=== PATIENT | male | born 1955 | race Caucasian/White ===

== ENCOUNTER → 2021-12-07 | Outpatient (CLI) | payer MEDICARE ==
--- NOTE | 2021-12-07 12:44 | P.PN ---
Subjective DATE: 12/07/2021 FOLLOW UP VISIT. Patient with obstructive sleep apnea hypopnea syndrome return to sleep center for follow-up visit. Recently patient had sleep study which documented obstructive sleep apnea hypopnea syndrome. Patient was initiated on PAP therapy and today is first visit after treatment was started. Patient was able to use PAP equipment every night for the whole night. The patient does have some problems with the mask andPAP pressure . She wakes up in the middle of the night and feels the pressure is too high [place] sleepiness scale is for. I checked information from PAP unit. PAP unit pressure 5-14 average 11.2 cm H2O. Usage is 90 % for more then 4 hours, average 6 hours per night. Leak is 12.8 l/m, which is in acceptable range. Apnea Hypopnea Index is 8.6, which is above normal but but definitely better than during diagnostic sleep test when apnea-hypopnea index was 22.4. MEDICATIONS:1. Metoprolol 25 mg twice a day 2. Tamsulosin 0.4 mg once a day 3. Xarelto 20 mg once a day During physical exam: GENERAL: A pleasant patient without any distress. VITAL SIGNS: BP 145/75, HR 50, RR 16 , weight 161, temperature 98.3, oxygen saturation at room air 98 . HEENT: PERRLA, EOMI.low position of soft palate, Mallapati 23 . NECK: Supple. No JVD. LUNGS: Clear to percussion and to auscultation. Good air exchange. No wheezing or rhonchi. HEART: S1, S2 regular. ABDOMEN: Soft and nontender.[] EXTREMITIES: No clubbing or cyanosis. GUITAR MAKER HAND: Awake, alert, and oriented x3. No focal deficit. Impressions: 1. Obstructive sleep apnea-hypopnea syndrome AHI 22.4. Patient demonstrated great compliance with treatment, benefiting from treatment. Patient has discomfort with full facemask and with pressure. 2. History of possible REM sleep behavioral disorder. 3. History of paroxysmal atrial fibrillation. 4. Benign prostatic hypertrophy. 5. History of pre-diabetes mellitus. 6. Status post surgical treatment of melanoma of the chest area. 7. Status post tonsillectomy. 8. Status post appendectomy. Plan: 1. Continue using PAP equipment every night for the whole night. I decrease maximal CPAP pressure down to 12 cm of water. We will try nasal pillows mask. 2. To change air filter at least 1-2 times per month. 3. PAP unit should stay lower then position of the head. 4. Advised patient to remove all remaining water from humidifier canister daily and make it dry after each usage. Refill canister with fresh distilled water before each usage. 5. Sleep hygiene with regular time in bed for at least 8 hours. 6. Precautions related to driving. No driving if feel any sleepiness. 7. I will maintain prescription for PAP supplies including mask, tube, filters. 8. Follow up visit in 4 months or earlier if patient has any problems. 9. Watching weight. Thank you very much for allowing me to participate in the management of your patient. Arnaud Boyer MD, PhD, FAASM. Diplomat of [place] [employer], Sleep Medicine Board by [employer] Medicine Fruit Worker of [facility] [place]
== END ==
LOC: SLEEP 11:42
PROVIDERS: ATTEND Internal Medicine
DX: G47.33 Obstructive sleep apnea (adult) (pediatric) (principal); I48.0 Paroxysmal atrial fibrillation; N40.0 Benign prostatic hyperplasia without lower urinary tract symptoms; Z98.890 Other specified postprocedural states; Z90.09 Acquired absence of other part of head and neck; Z86.39 Personal history of other endocrine, nutritional and metabolic disease; Z90.49 Acquired absence of other specified parts of digestive tract; Z99.89 Dependence on other enabling machines and devices

== ENCOUNTER → 2022-05-02 | Outpatient (CLI) | payer MEDICARE ==
--- NOTE | 2022-05-02 12:11 | P.PN ---
Subjective DATE: 05/02/2022 FOLLOW UP VISIT. Patient with obstructive sleep apnea hypopnea syndrome return to sleep center for follow-up visit. Information from previous visit have been reviewed. Patient is using PAP equipment every night for the whole night, getting PAP supplies in time. The patient does not have significant problems with the mask, PAP unit, but has some problem related to humidification. [place] sleepiness scale is 3, which is normal. Patient still has some episodes of out of dream movements but significantly rear than before starting to use CPAP equipment. I checked information from PAP unit. PAP unit pressure 5-12, average 11.1 cm H2O. Usage is 100% and 90 % for more then 4 hours, average 5.8 hours per night. Leak is 17.6 l/m, which is in acceptable range. Apnea Hypopnea Index is 6.0, which slightly above ideal range, but showed improvement comparing to the previous visit when it was 8.6. Apnea-hypopnea ind ex during the sleep study was 22.4. MEDICATIONS:1. Metoprolol 25 mg once a day 2. Xarelto 20 mg once a day 3. Pravastatin 20 mg once a day 4. Tamsulosin 20 mg once a day During physical exam: GENERAL: A pleasant patient without any distress. VITAL SIGNS: BP 146/78, HR 55, RR 16 , weight 166.0, temperature 97.0, oxygen saturation at room air 98 % . HEENT: PERRLA, EOMI.low position of soft palate, Mallapati 2-3 . NECK: Supple. No JVD. LUNGS: Clear to percussion and to auscultation. Good air exchange. No wheezing or rhonchi. HEART: S1, S2 regular. ABDOMEN: Soft and nontender.[] EXTREMITIES: No clubbing or cyanosis. DIGITAL PUBLISHING SPECIALIST: Awake, alert, and oriented x3. No focal deficit. Impressions: 1. Obstructive sleep apnea-hypopnea syndrome. Patient demonstrated great compliance with treatment, benefiting from treatment. Apnea-hypopnea index reduced to 6. 2. History of REM sleep behavior disorder episodes, improved on treatment with CPAP, still present but very early. 3. History of paroxysmal lateral fibrillation, no recent episodes. 4. BPH. 5. History of pre-diabetes mellitus. 6. Status post tonsillectomy. 7. Status post surgical treatment of melanoma over the chest area. 8. Status post appendectomy. Plan: 1. Continue using PAP equipment every night for the whole night. I teach patient how to regulate humidity, level of humidity was increased to 6. [place] gel to the nose if necessary. 2. To change air filter at least 1-2 times per month. 3. PAP unit should stay lower then position of the head. 4. Advised patient to remove all remaining water from humidifier canister daily and make it dry after each usage. Refill canister with fresh distilled water before each usage. 5. Sleep hygiene with regular time in bed for at least 8 hours. 6. Precautions related to driving. No driving if feel any sleepiness. 7. I will maintain prescription for PAP supplies including mask, tube, filters. 8. Follow up visit in 4 months or earlier if patient has any problems. 9. Watching weight. Thank you very much for allowing me to participate in the management of your patient. Arnaud Boyer MD, PhD, FAASM. Diplomat of [place] Board of Sleep Medicine, Sleep Medicine Board by [employer] Board of Internal Medicine Search Engine Marketing Manager of [facility] [place]
== END ==
LOC: SLEEP 11:20
PROVIDERS: ATTEND Internal Medicine
DX: G47.33 Obstructive sleep apnea (adult) (pediatric) (principal); I48.0 Paroxysmal atrial fibrillation; N40.0 Benign prostatic hyperplasia without lower urinary tract symptoms; Z90.09 Acquired absence of other part of head and neck; Z85.820 Personal history of malignant melanoma of skin; Z90.49 Acquired absence of other specified parts of digestive tract; Z79.01 Long term (current) use of anticoagulants; Z99.89 Dependence on other enabling machines and devices
CPT/HCPCS: 99212

== ENCOUNTER → 2022-09-13 | Outpatient (CLI) | payer MEDICARE ==
--- NOTE | 2022-09-13 12:21 | P.PN ---
Subjective DATE: 09/13/2022 FOLLOW UP VISIT. Patient with obstructive sleep apnea hypopnea syndrome return to sleep center for follow-up visit. Information from previous visit have been reviewed. Patient is using PAP equipment every night for the whole night, getting PAP supplies in time. The patient does not have significant problems with the mask, PAP unit and humidification. [place] sleepiness scale is 3, which is normal. I checked information from PAP unit and explained it to the patient in details. PAP unit pressure 5-12, average 11 cm H2O. Usage is 100% and 83 % for more then 4 hours, average 6 hours per night. Leak is 15.5 l/m, which is in acceptable range. Apnea Hypopnea Index is 6.5, which includes 4.7 central apneas and only 0.3 obstructive. MEDICATIONS:1. Metoprolol 25 mg once a day 2. Metformin 3. Finasteride 4. T[place]ul[place]in During physical exam: GENERAL: A pleasant patient without any distress. VITAL SIGNS: BP 145/82, HR 66, RR 12 , weight 162.2, temperature 98.1, oxygen saturation at room air 98 % . HEENT: PERRLA, EOMI.low position of soft palate, Mallapati 23 . NECK: Supple. No JVD. LUNGS: Clear to percussion and to auscultation. Good air exchange. No wheezing or rhonchi. HEART: S1, S2 regular. ABDOMEN: Soft and nontender.[] EXTREMITIES: No clubbing or cyanosis. SENIOR FIELD ENGINEER: Awake, alert, and oriented x3. No focal deficit. Impressions: 1. Obstructive sleep apnea-hypopnea syndrome. Patient demonstrated great compliance with treatment, benefiting from treatment. Few central apneas according reading from CPAP unit. 2. History of paroxysmal atrial fibrillation. 3. BPH. 4. History of REM sleep behavior disorder, no significant problems on CPAP. 5. Pre-diabetes mellitus. 6. Status post surgical treatment of melanoma over the chest area. 7. Status post tonsillectomy. 8. Status post appendectomy. Plan: 1. Continue using PAP equipment every night for the whole night. 2. To change air filter at least 1-2 times per month. 3. PAP unit should stay lower then position of the head. 4. Advised patient to remove all remaining water from humidifier canister daily and make it dry after each usage. Refill canister with fresh distilled water before each usage. 5. Sleep hygiene with regular time in bed for at least 8 hours. 6. Precautions related to driving. No driving if feel any sleepiness. 7. I will maintain prescription for PAP supplies including mask, tube, filters. 8. Watching weight. 9.Follow up visit in 6 months or earlier if patient has any problems. Thank you very much for allowing me to participate in the management of your patient. Arnaud Boyer MD, PhD, FAASM. Diplomat of [employer] Board of Sleep Medicine, Sleep Medicine Board by [employer] of Internal Medicine Geophysical Support Specialist of [facility] [place]
== END ==
LOC: SLEEP 11:41
PROVIDERS: ATTEND Internal Medicine
DX: G47.33 Obstructive sleep apnea (adult) (pediatric) (principal); Z99.89 Dependence on other enabling machines and devices; Z98.890 Other specified postprocedural states; E11.9 Type 2 diabetes mellitus without complications; I48.0 Paroxysmal atrial fibrillation; N40.0 Benign prostatic hyperplasia without lower urinary tract symptoms; Z79.899 Other long term (current) drug therapy; Z85.820 Personal history of malignant melanoma of skin; Z90.49 Acquired absence of other specified parts of digestive tract; Z79.84 Long term (current) use of oral hypoglycemic drugs
CPT/HCPCS: 99212

== ENCOUNTER → 2023-03-21 | Outpatient (CLI) | payer MEDICARE ==
--- NOTE | 2023-03-21 12:30 | P.PN ---
Subjective DATE: 03/21/2023 FOLLOW UP VISIT. Patient with obstructive sleep apnea hypopnea syndrome return to sleep center for follow-up visit. Information from previous visit have been reviewed. Patient is using PAP equipment every night for the whole night, getting PAP supplies in time. Sometimes patient has difficulties to breathe through the nose during sleep. [place] sleepiness scale is 2, which is perfect. I checked information from PAP unit. PAP unit pressure 5-12, average 9.5 cm H2O. Usage is 97% and 70 % for more then 4 hours, average 5 hours per night. Leak is 14.0 l/m, which is in acceptable range. Apnea Hypopnea Index is 3.2, which is normal. MEDICATIONS:1. Metoprolol 25 mg once a day 2. Pravastatin 20 mg once a day 3. Metformin 500 mg once a day 4. Flomax 0.4 mg twice a day 5. Prednisone 1 milligrams twice a day During physical exam: GENERAL: A pleasant patient without any distress. VITAL SIGNS: BP 133/76, HR 56, RR 18 , weight 161.0, temperature 98.4, oxygen saturation at room air 96 % . HEENT: PERRLA, EOMI.low position of soft palate, Mallapati 2-3 . NECK: Supple. No JVD. LUNGS: Clear to percussion and to auscultation. Good air exchange. No wheezing or rhonchi. HEART: S1, S2 regular. ABDOMEN: Soft and nontender.[] EXTREMITIES: No clubbing or cyanosis. MEDICAL SCIENCE LIAISON: Awake, alert, and oriented x3. No focal deficit. Impressions: 1. Obstructive sleep apnea-hypopnea syndrome. Patient demonstrated good compliance with treatment, benefiting from treatment. 2. History of paroxysmal atrial fibrillation. 3. History of REM sleep behavior disorder, improved with CPAP. 4. BPH. 5. Pre-Diabetes mellitus. 6. Status post surgical treatment for melanoma over the chest area. 7. Status post tonsillectomy. 8. Status post appendectomy. I decreased pressure in CPAP unit to the range of 5-10 cm of water. Temperature in the tube was increased to 82 and level of humidity was increased to 4. Plan: 1. Continue using PAP equipment every night for the whole night. 2. To change air filter at least 1-2 times per month. 3. PAP unit should stay lower then position of the head. 4. Advised patient to remove all remaining water from humidifier canister daily and make it dry after each usage. Refill canister with fresh distilled water before each usage. 5. Sleep hygiene with regular time in bed for at least 8 hours. 6. Precautions related to driving. No driving if feel any sleepiness. 7. I will maintain prescription for PAP supplies including mask, tube, filters. 8. Follow up visit in 6 months or earlier if patient has any problems. 9. Watching weight. Thank you very much for allowing me to participate in the management of your patient. Arnaud Boyer MD, PhD, FAASM. Diplomat of [place] Board of Sleep Medicine, Sleep Medicine Board by [place] [employer] of Internal Medicine Cylinder Machine Operator Pulp Drier of [facility] [place]
== END ==
LOC: 3 N SLEEP 11:36
PROVIDERS: ATTEND Internal Medicine
DX: G47.33 Obstructive sleep apnea (adult) (pediatric) (principal); E11.9 Type 2 diabetes mellitus without complications; I48.0 Paroxysmal atrial fibrillation; N40.0 Benign prostatic hyperplasia without lower urinary tract symptoms; Z79.84 Long term (current) use of oral hypoglycemic drugs; Z79.899 Other long term (current) drug therapy; Z85.820 Personal history of malignant melanoma of skin; Z90.49 Acquired absence of other specified parts of digestive tract; Z98.890 Other specified postprocedural states; Z90.89 Acquired absence of other organs; Z99.89 Dependence on other enabling machines and devices
CPT/HCPCS: 99212

== ENCOUNTER → 2023-10-09 | Outpatient (CLI) | payer MEDICARE ==
[2023-10-09 11:51] VITALS: BP 151/92; PULSE 55; RESP 16; TEMP 98.1
--- NOTE | 2023-10-09 12:14 | P.PN ---
Subjective DATE: 10/09/2023 FOLLOW UP VISIT. Patient with obstructive sleep apnea hypopnea syndrome return to sleep center for follow-up visit. Information from previous visit have been reviewed. Patient is using PAP equipment every night for the whole night, getting PAP supplies in time. The patient does not have significant problems with the mask, PAP unit and humidification. [place] sleepiness scale is 3, which is normal. I checked information from PAP unit. PAP unit pressure 5-10, average 8.9 cm H2O. Usage is 97% and 73% for more then 4 hours, average 5.75 hours per night. Leak is 17.6 l/m, which is in acceptable range. Apnea Hypopnea Index is slightly increased to 5.6. MEDICATIONS:1. Metoprolol 25 mg once a day 2. Pravastatin 20 mg once a day 3. Aspirin 81 mg once a day 4. Tamsulosin 0.4 mg twice a day During physical exam: GENERAL: A pleasant patient without any distress. VITAL SIGNS: Please see below, weight 167 pounds. HEENT: PERRLA, EOMI.low position of soft palate, Mallapati 23. NECK: Supple. No JVD. LUNGS: Clear to percussion and to auscultation. Good air exchange. No wheezing or rhonchi. HEART: S1, S2 regular. ABDOMEN: Soft and nontender.[] EXTREMITIES: No clubbing or cyanosis. INSPECTOR WIRE PRODUCTS: Awake, alert, and oriented x3. No focal deficit. Impressions: 1. Obstructive sleep apnea-hypopnea syndrome. Patient demonstrated good compliance with treatment, benefiting from treatment. Possibly opens his mouth during the sleep. Patient is using nasal pillow mask, but feels uncomfortable with the chinstrap. 2. History of paroxysmal atrial fibrillation. 3. History of REM sleep behavior disorder, no recent problems. 4. BPH. 5. History of prediabetes. 6. Status post surgery for melanoma of the chest area. 7. Status post appendectomy. 8. Status post tonsillectomy. 9. Hyperlipidemia. I changed pressure in CPAP unit to the range 5-11 cm of water. Plan: 1. Continue using PAP equipment every night for the whole night. 2. To change air filter at least 1-2 times per month. 3. PAP unit should stay lower then position of the head. 4. Advised patient to remove all remaining water from humidifier canister daily and make it dry after each usage. Refill canister with fresh distilled water before each usage. 5. Sleep hygiene with regular time in bed for at least 8 hours. 6. Precautions related to driving. No driving if feel any sleepiness. 7. I will maintain prescription for PAP supplies including mask, tube, filters. 8. Follow up visit in 6 months or earlier if patient has any problems. 9. Watching weight. Thank you very much for allowing me to participate in the management of your patient. Arnaud Boyer MD, PhD, FAASM. Diplomat of [place] Board of Sleep Medicine, Sleep Medicine Board by [place] Board of Internal Medicine Substitute School Nurse of [facility] [place] Objective - Vital Signs Vital signs: Vital Signs Temp 98.1 F 10/09/23 11:36 Pulse 55 L 10/09/23 11:36 Resp 16 10/09/23 11:36 BP 151/92 10/09/23 11:36 Pulse Ox 99 10/09/23 11:36 FiO2 Intake & Output 10/08/23 10/09/23 10/09/23 18:59 06:59 18:59 Weight 75.863 kg
== END ==
LOC: SLEEP 11:12
PROVIDERS: ATTEND Internal Medicine
DX: G47.33 Obstructive sleep apnea (adult) (pediatric) (principal); I48.0 Paroxysmal atrial fibrillation; E78.5 Hyperlipidemia, unspecified; N40.0 Benign prostatic hyperplasia without lower urinary tract symptoms; G47.8 Other sleep disorders; R73.03 Prediabetes; Z90.49 Acquired absence of other specified parts of digestive tract; Z85.820 Personal history of malignant melanoma of skin; Z99.89 Dependence on other enabling machines and devices
CPT/HCPCS: 99212

== ENCOUNTER → 2024-06-11 | Outpatient (CLI) | payer MEDICARE ==
[2024-06-11 10:32] VITALS: BP 129/81; PULSE 62; RESP 16; TEMP 98.5
--- NOTE | 2024-06-11 10:47 | P.PROGSL ---
Subjective DATE: 06/11/2024 FOLLOW UP VISIT. Patient with obstructive sleep apnea hypopnea syndrome return to sleep center for follow-up visit. Information from previous visit have been reviewed. Patient is using PAP equipment every night for the whole night, getting PAP supplies in time. The patient does not have significant problems with the mask, PAP unit and humidification. [place] sleepiness scale is 2, which is normal. I checked information from PAP unit. PAP unit pressure 5-11, average 9.3 cm H2O. Usage is 90% for more then 4 hours, average 5.2 hours per night. Leak is 18 l/m, which is in acceptable range. Apnea Hypopnea Index is 4.7 for the last night and 6.1 average for the last year, which showed slight increasing. MEDICATIONS have been reviewed, please see below. During physical exam: GENERAL: A pleasant patient without any distress. VITAL SIGNS: Please see below, weight is 166 lbs. HEENT: PERRLA, EOMI.low position of soft palate, Mallapati 23. NECK: Supple. No JVD. LUNGS: Clear to percussion and to auscultation. Good air exchange. No wheezing or rhonchi. HEART: S1, S2 regular. ABDOMEN: Soft and nontender.[] EXTREMITIES: No clubbing or cyanosis. MATCHER LEATHER PARTS: Awake, alert, and oriented x3. No focal deficit. Impressions: 1. Obstructive sleep apnea-hypopnea syndrome. Patient demonstrated great compliance with treatment, benefiting from treatment. 2. History of paroxysmal atrial fibrillation. 3. History of prediabetes. 4. Status post melanoma removed from the chest. 5. Hyperlipidemia. 6. History of REM sleep behavioral disorder episodes in the past. 7. Status post tonsillectomy 8. Status post appendectomy. 9. BPH. Plan: 1. Continue using PAP equipment every night for the whole night. 2. Sleep hygiene with regular time in bed for at least 7.5-8 hours 3. PAP unit should stay lower then position of the head. 4. Advised patient to remove all remaining water from humidifier canister daily and make it dry after each usage. Refill canister with fresh distilled water before each usage. 5. Watching weight. 6. Precautions related to driving. No driving if feel any sleepiness. 7. I will maintain prescription for PAP supplies including mask, tube, filters. 8. Follow up visit in 8 months or earlier if patient has any problems. Thank you very much for allowing me to participate in the management of your patient. Arnaud Boyer MD, PhD, FAASM. Diplomat of [place] Board of Sleep Medicine, Sleep Medicine Board by [place] Board of Internal Medicine Regional Facilities Manager of [facility] [place] Objective - Vital Signs Vital Signs: Vital Signs Temp 98.5 F 06/11/24 10:31 Pulse 62 06/11/24 10:31 Resp 16 06/11/24 10:31 BP 129/81 06/11/24 10:31 Pulse Ox 98 06/11/24 10:31 FiO2 Intake & Output 06/10/24 06/11/24 06/11/24 18:59 06:59 18:59 Weight 75.296 kg Home Medications: Home Medications Medication Instructions Recorded Confirmed Type Metoprolol Succinate [Kapspargo 25 mg PO DAILY 06/11/24 06/11/24 History Sprinkle] Pravastatin Sodium [Pravachol] 40 mg PO DAILY 06/11/24 06/11/24 History
== END ==
LOC: 3 N SLEEP 10:13
PROVIDERS: ATTEND Internal Medicine
DX: G47.33 Obstructive sleep apnea (adult) (pediatric) (principal); N40.0 Benign prostatic hyperplasia without lower urinary tract symptoms; E78.5 Hyperlipidemia, unspecified; Z86.79 Personal history of other diseases of the circulatory system; Z86.39 Personal history of other endocrine, nutritional and metabolic disease; Z85.820 Personal history of malignant melanoma of skin; Z72.820 Sleep deprivation; Z90.89 Acquired absence of other organs; Z93.52 Appendico-vesicostomy status
CPT/HCPCS: 99212

== ENCOUNTER → 2024-09-23 | Outpatient (CLI) | payer MEDICARE ==
--- NOTE | 2024-09-23 09:35 | MR ---
EXAMINATION TYPE: MR brain wo con DATE OF EXAM: 09/23/2024 8:49 AM COMPARISON: None. CLINICAL INDICATION: Male, 69 years old with history of R41.9 SIGNS W COGNITIVE FUNCTIONS AND AWARENE SS, Cognitive deficits TECHNIQUE: Multiplanar, multisequence images of the brain and brainstem were acquired without IV con trast. Diffusion weighted imaging is performed. FINDINGS: No evidence for acute infarction, hemorrhage, mass, mass effect, midline shift, herniation, effacemen t of basal cisterns, or extra-axial fluid collection. There is mild volume loss overlying the bilateral cerebral convexities. Ventricular caliber is normal . Major intracranial flow voids are intact. T2/FLAIR weighted sequences show moderate scattered bright signal foci especially throughout the subc ortical region of both cerebral hemispheres greatest in the bifrontal lobes gradient sequence shows n o suspicious susceptibility to suggest prior intracranial microplates. Suspect some prominent perivas cular spaces in the bilateral basal ganglia Midline structures demonstrate normal morphology. The craniocervical junction is normal. Post contrast images demonstrate no evidence of pathologic enhancement. Dural venous sinuses are pat ent. There is moderate mucosal thickening ethmoid air cells, mild in the right frontal sinus, and complete opacification of the right mastoid air cells. Globes appear intact. IMPRESSION: 1. Mild, age-related cerebral atrophy. No acute intracranial abnormality seen. 2. Moderate scattered T2 bright white matter changes predominantly in the subcortical regions especia lly in the bifrontal lobes. Probably relating to chronic small vessel ischemic disease. Chronic hyper tension, chronic migraines, and demyelinating disease are also differential considerations. The latte r is considered less likely. 3. Complete opacification of the right-sided mastoid air cells. Correlate for any localizing pain for mastoiditis. 4. Moderate chronic ethmoid sinus disease. [facility], , 09/23/2024 9:33 AM
== END | disposition home or self-care (01) ==
LOC: RADMRIMAIN 08:18
PROVIDERS: ATTEND Psychiatry & Neurology Vascular Neurology
DX: J32.2 Chronic ethmoidal sinusitis (principal); R41.9 Unspecified symptoms and signs involving cognitive functions and awareness; I10 Essential (primary) hypertension; G43.909 Migraine, unspecified, not intractable, without status migrainosus; H74.8X3 Other specified disorders of middle ear and mastoid, bilateral; G31.1 Senile degeneration of brain, not elsewhere classified
CPT/HCPCS: 70551